=== PATIENT | male | born 1970 | race Caucasian/White ===

== ENCOUNTER 2017-08-03 10:49 | Emergency (ER) | payer MEDICAID ==
[~2017-08-03] VITALS: Wt 69.0 kg
[~2017-08-03 10:49] MED LIST: ALBU18HF INHALATION; ALBU8.5H3 INH; AMOX500C2 PO; LEVO500T72 PO; PRED20TA PO; TRAM50TA2 PO
[2017-08-03 10:52] VITALS: Wt 69.0 kg
[2017-08-03] MEDS ORDERED: IPRATROPIUM (NEB) 0.5 MG/2.5 ML AMP HHN ONE (15:30)
[2017-08-03] MEDS ORDERED: METHYLPREDNISOLONE 125 MG INJ IM ONE (15:30)
[2017-08-03] MEDS ORDERED: ALBUTEROL 0.083% (NEB) 2.5 MG/3 ML AMP HHN STA (15:30)
--- NOTE | 2017-08-03 15:40 | ERD ---
ER Documentation Chief Complaint Chief Complaint COUGH SINCE LAST NIGHT HPI 47-year-old male presents emergency department for cough, fever since last night. Denies headache, dizziness, blurred vision, changes in vision, neck pain , neck stiffness, throat pain, difficulty swallowing, loss of appetite, shoulder pain, chest pain, difficulty breathing when lying flat, abdominal pain , nausea, vomiting, constipation, diarrhea, loss of bowel bladder control, urinary symptoms, recent travel, recent long travel, leg pain, recent exposure to any illness, recent antibiotic use in the last 3 months, chills, seizures. Past medical history of asthma. No surgical history. ROS All systems reviewed and are negative except as per history of present illness. Medications Home Meds Active Scripts Prednisone* (Prednisone*) 20 Mg Tab, 40 MG PO DAILY for 4 Days, TAB Prov:BEREEDARACHELJUDITH Miller 08/03/17 Azithromycin* (Zithromax*) 250 Mg Tablet, 250 MG PO .ZPACK DIRECTED, #6 TAB TAKE 500 MG (2 TABS) THE FIRST DAY THEN 250 MG (1 TAB) DAYS 2-5 Prov:ESTEE GARCIA 08/03/17 Albuterol Sulfate* (Proair HFA*) 8.5 Gm Hfa.aer.ad, 2 PUFF INH Q4 Y for COUGH, # 1 INHALER Prov:JOSEESTEE Miller 08/03/17 Tramadol HCl (Tramadol HCl) 50 Mg Tablet, 50 MG PO Q4 Y for PAIN, #20 TAB Prov:ASHLEY HARRIS PA-C 04/15/16 Albuterol Sulfate* (Ventolin HFA*) 18 Gm Hfa.aer.ad, 2 PUFF INHALATION Q4H, #1 INHALER Prov:SANDIE MOORE MD 03/02/16 Prednisone* (Prednisone*) 20 Mg Tab, 60 MG PO DAILY for 6 Days, TAB Prov:SANDIE MOORE MD 03/02/16 Levofloxacin* (Levaquin*) 500 Mg Tablet, 500 MG PO DAILY for 7 Days, TAB Prov:SIDNEY IBANEZ DO 09/24/15 Albuterol Sulfate* (Proair HFA*) 8.5 Gm Hfa.aer.ad, 2 PUFF INH Q4H Y for WHEEZING AND SOB, #1 INHALER Prov:SIDNEY IBANEZ DO 09/24/15 Prednisone* (Prednisone*) 20 Mg Tab, 60 MG PO DAILY for 5 Days, TAB Prov:SIDNEY IBANEZ DO 09/24/15 Albuterol Sulfate* (Ventolin HFA*) 18 Gm Hfa.aer.ad, 2 PUFF INHALATION Q4H, #1 INHALER Prov:KYM LONDON DO 09/19/15 Amoxicillin* (Amoxicillin*) 500 Mg Cap, 500 MG PO TID for 10 Days, CAP Prov:KYM LONDON DO 09/19/15 Tramadol HCl (Tramadol HCl) 50 Mg Tablet, 50 MG PO Q4 Y for PAIN, #20 TAB Prov:KAYLEEN JANSEN PA-C 08/20/15 Allergies Allergies: Coded Allergies: acetaminophen (Verified Allergy, Unknown, 08/03/17) aspirin (Unverified Allergy, Unknown, 08/03/17) citric acid (Unverified Allergy, Unknown, 08/03/17) ibuprofen (Unverified Allergy, Unknown, 08/03/17) sodium bicarbonate (Unverified Allergy, Unknown, 08/20/15) PMhx/Soc Medical and Surgical Hx: pt denies Medical Hx, pt denies Surgical Hx History of Surgery: No Anesthesia Reaction: No Hx Neurological Disorder: No Hx Respiratory Disorders: Yes (asthma) Hx Cardiac Disorders: No Hx Psychiatric Problems: No Hx Miscellaneous Medical Probl: Yes (fracture left arm) Hx Alcohol Use: No Hx Substance Use: No Hx Tobacco Use: No Smoking Status: Never smoker Physical Exam Vitals Vital Signs Date Time Temp Pulse Resp B/P Pulse Ox O2 Delivery O2 Flow Rate FiO2 08/03/17 17:15 98.8 100 20 128/92 93 Room Air 08/03/17 15:45 123 20 95 21 08/03/17 10:52 102.2 69 18 133/71 99 Physical Exam Const: Awake. In mild distress due to his cough. Head: Atraumatic Eyes: Normal Conjunctiva. No visual l field loss. ENT: Normal External Ears, Nose and Mouth. Left ear: TM is not erythematous. Right ear: TM is not erythematous. No bleeding. No discharge on bilateral ears. No hearing loss bilaterally. Throat: Uvula is midline not displaced. Tonsils heels are +1 bilaterally without redness and without exudates. Tolerating secretions. Patent airway. Speaks full and clear sentences. Neck: Full range of motion..~ No meningismus. No neck stiffness. No signs of meningeal irritation. Resp: Tachypneic. Mild wheezing bilaterally. Cardio: Regular rate and rhythm, no murmurs Abd: Soft, non tender, non distended. Normal bowel sounds. Skin: No petechiae or rashes Back: No midline or flank tenderness Ext: No cyanosis, or edema Neur: Awake and alert. Romberg test negative. No neurological deficits. Psych: Normal Mood and Affect Results 24 hrs Current Medications Medications (Trade) Dose Ordered Sig/Carmel Route PRN Reason Start Time Stop Time Status Last Admin Dose Admin Albuterol (Proventil 0.083% (Neb)) 5 mg ONCE STAT N 08/03/17 15:30 08/03/17 15:35 DC 08/03/17 15:55 Ipratropium [place] (Atrovent 0.02% (Neb)) 0.5 mg ONCE ONCE HHN 08/03/17 15:30 08/03/17 15:35 DC 08/03/17 15:55 Methylprednisolone Sodium Succinate (Solu-Medrol) 125 mg ONCE ONCE IM 08/03/17 15:30 08/03/17 15:35 DC 08/03/17 15:51 Procedures/MDM Chest x-ray: Mild left low lower lobe linear atelectatic changes. EKG: Sinus tachycardia with a ventricular rate of 111 bpm. No STEMI. Read by supervising physician. Influenza A and B: Negative on influenza A and B. Treatment: Solu-Medrol IM. Albuterol and Atrovent breathing treatment. Reevaluation: Temperature responded to ice pack. Patient responded to breathing treatment and Solu-Medrol. Respirations even and unlabored. Lung sounds are clear to auscultation. Patient stated that he feels much better this time and is ready to go home. Differential diagnosis: I have low suspicion for sepsis, meningitis, severe serious bacterial infection, pneumonia, pulmonary embolism, flu given to the patient responded to breathing treatment and his temperature responded to ice packs. Patient is no neurological deficits. Final diagnosis: Asthma exacerbation/flu/asthmatic bronchitis. Prescription: Azithromycin. Pro-air. Prednisone. Follow-up with PCP in the next 3-4 days. Come back here in the emergency department for any new symptoms or any worsening of symptoms. All questions and concerns are answered. Patient and family member verbalized understanding and agreed with the plan of care. Hemodynamically stable on discharge. Departure Diagnosis: Primary Impression: Bronchitis Additional Impressions: Asthmatic bronchitis Asthma exacerbation Condition: Stable Additional Instructions: Follow-up with PCP in the next 3-4 days. Come back here in the emergency department for any new symptoms or any worsening of symptoms. All questions and concerns are answered. Patient and family member verbalized understanding and agreed with the plan of care. ESTEE GARCIA Aug 03, 2017 15:40
--- NOTE | 2017-08-03 16:20 | RADRPT ---
PROCEDURE: XR Chest. CLINICAL INDICATION: cough, fever TECHNIQUE: PA and lateral views of the chest were obtained COMPARISON: 03/02/16 FINDINGS: The heart and mediastinum are within normal limits. There are mild left lower lobe linear atelectatic changes. The lungs are otherwise clear. There is no pleural effusion or pneumothorax. The bones and soft tissues are unremarkable. RPTAT: AA IMPRESSION: Mild left lower lobe linear atelectatic changes. .Triston El MD, MD Date Time Electronically viewed and signed by .Triston El MD, on 08/03/2017 16:20 .S/
[2017-08-03] MEDS ORDERED: ALBU8.5H3 INH (17:05)
[2017-08-03] MEDS ORDERED: AZIT250T94 PO (17:06)
[2017-08-03] MEDS ORDERED: PRED20TA PO (17:06)
[2017-08-03 17:15] VITALS: BP 128/92; PULSE 100; RESP 20; TEMP 98.8
== END 2017-08-03 17:16 | disposition home or self-care (01) ==
LOC: FTE 10:49
DX: J20.9 Acute bronchitis, unspecified (principal); J45.901 Unspecified asthma with (acute) exacerbation; R07.9 Chest pain, unspecified
CPT/HCPCS: 71020; 87400; 93005; 94664; 96372; J2930; Z7502; Z7610

== ENCOUNTER 2018-10-28 14:57 | Emergency (ER) | payer MEDICAID ==
[~2018-10-28] VITALS: Wt 71.0 kg
[~2018-10-28 14:57] MED LIST changes: -ALBU8.5H3 INH; +ALBU8.5H8 INH; +AZIT250T PO; +LEVO500T48 PO; -LEVO500T72 PO
[2018-10-28 15:21] VITALS: BP 149/85
[2018-10-28] MEDS ORDERED: ALBUTEROL 0.5% (NEB) 2.5 MG/0.5 ML AMP INH STA (18:23)
[2018-10-28] MEDS ORDERED: IPRATROPIUM (NEB) 0.5 MG/2.5 ML AMP INH STA (18:23)
[2018-10-28] MEDS ORDERED: predniSONE 20 MG TAB PO ONE (18:30)
[2018-10-28] MEDS ORDERED: ALBU18HF INHALATION (20:45)
[2018-10-28] MEDS ORDERED: PRED20TA PO (20:45)
[2018-10-28 20:51] VITALS: PULSE 80; RESP 20
--- NOTE | 2018-10-28 22:33 | ERD ---
ER Documentation Chief Complaint Chief Complaint cough, fever, sore throat, back pain x 3 days HPI 48-year-old male patient with past medical history of asthma presents to ED complaining of cough, fever, sore throat. Patient reports is been going for the last 3 days. States that he would like a breathing treatment because he is wheezing. Denies any nausea, chest pain, vomiting, diarrhea, neck stiffness, abdominal pain. Denies any sick contacts. ROS All systems reviewed and are negative except as per history of present illness. Medications Home Meds Active Scripts Albuterol Sulfate* (Ventolin HFA*) 18 Gm Hfa.aer.ad, 2 PUFF INHALATION Q4H, #1 INHALER Prov:ROSA SANDOVAL PA-C 10/28/18 Prednisone* (Prednisone*) 20 Mg Tab, 40 MG PO DAILY for 4 Days, TAB Prov:ROSA SANDOVAL PA-C 10/28/18 Prednisone* (Prednisone*) 20 Mg Tab, 40 MG PO DAILY for 4 Days, TAB Prov:ESTEE GARCIA 08/03/17 Azithromycin* (Zithromax*) 250 Mg Tablet, 250 MG PO .TeresaPACK DIRECTED, #6 TAB TAKE 500 MG (2 TABS) THE FIRST DAY THEN 250 MG (1 TAB) DAYS 2-5 Prov:ESTEE GARCIA 08/03/17 Albuterol Sulfate* (Proair HFA*) 8.5 Gm Hfa.aer.ad, 2 PUFF INH Q4 PRN for COUGH, #1 INHALER Prov:ESTEE GARCIA 08/03/17 Tramadol HCl (Tramadol HCl) 50 Mg Tablet, 50 MG PO Q4 PRN for PAIN, #20 TAB Prov:ASHLEY HARRIS PA-C 04/15/16 Albuterol Sulfate* (Ventolin HFA*) 18 Gm Hfa.aer.ad, 2 PUFF INHALATION Q4H, #1 INHALER Prov:SANDIE MOORE MD 03/02/16 Prednisone* (Prednisone*) 20 Mg Tab, 60 MG PO DAILY for 6 Days, TAB Prov:SANDIE MOORE MD 03/02/16 Levofloxacin* (Levaquin*) 500 Mg Tablet, 500 MG PO DAILY for 7 Days, TAB Prov:SIDNEY IBANEZ DO 09/24/15 Albuterol Sulfate* (Proair HFA*) 8.5 Gm Hfa.aer.ad, 2 PUFF INH Q4H PRN for WHEEZING AND SOB, #1 INHALER Prov:SIDNEY IBANEZ 09/24/15 Prednisone* (Prednisone*) 20 Mg Tab, 60 MG PO DAILY for 5 Days, TAB Prov:SIDNEY IBANEZ 09/24/15 Albuterol Sulfate* (Ventolin HFA*) 18 Gm Hfa.aer.ad, 2 PUFF INHALATION Q4H, #1 INHALER Prov:KYM LONDON 09/19/15 Amoxicillin* (Amoxicillin*) 500 Mg Cap, 500 MG PO TID for 10 Days, CAP Prov:KYM LONDON 09/19/15 Tramadol HCl (Tramadol HCl) 50 Mg Tablet, 50 MG PO Q4 PRN for PAIN, #20 TAB Prov:KAYLEEN JANSEN PA-C 08/20/15 Allergies Allergies: Coded Allergies: acetaminophen (Verified Allergy, Unknown, 10/28/18) aspirin (Unverified Allergy, Unknown, 10/28/18) citric acid (Unverified Allergy, Unknown, 10/28/18) ibuprofen (Unverified Allergy, Unknown, 10/28/18) sodium bicarbonate (Unverified Allergy, Unknown, 10/28/18) PMhx/Soc History of Surgery: No Anesthesia Reaction: No Hx Neurological Disorder: No Hx Respiratory Disorders: Yes (asthma) Hx Cardiac Disorders: No Hx Psychiatric Problems: No Hx Miscellaneous Medical Probl: Yes (fracture left arm) Hx Alcohol Use: No Hx Substance Use: No Hx Tobacco Use: No Smoking Status: Never smoker FmHx Family History: No diabetes, No coronary disease Physical Exam Vitals Vital Signs Date Temp Pulse Resp B/P (MAP) Pulse Ox O2 O2 Flow FiO2 Time Delivery Rate 10/28/18 80 20 100 Room Air 20:51 10/28/18 80 20 99 21 18:50 10/28/18 98.1 83 20 149/85 99 15:21 (106) Physical Exam Const: Dku-nry-yitruaxxp, well-nourished. In no acute distress. Head: Atraumatic, normocephalic Eyes: Normal Conjunctiva without injection. No purulent discharge. PERRL. EOMI ENT: Normal external ear. Ear canal without erythema. Tympanic membrane pearly marte without effusion or bulging. Nasal canal clear with normal turbinates. Moist oropharynx without tonsillar exudates. Non-erythematous pharynx. Uvula midline. No drooling. No trismus. Neck: Full range of motion. No meningismus. No cervical lymphadenopathy. Resp: Clear to auscultation bilaterally. No wheezing, rhonchi, rales, or crackles. No accessory muscle use. No retractions. Cardio: Regular rate and rhythm. No murmurs, rubs or gallops. Abd: Soft, non tender, non distended. Normal bowel sounds. No palpable masses. No rebound tenderness. No guarding. Skin: No petechiae or rashes Back: No midline tenderness. No CVA tenderness. Ext: No cyanosis, or edema. Neur: Awake and alert. Psych: Normal Mood and Affect Results 24 hrs Current Medications Medications Dose Sig/Carmel Start Time Status Last (Trade) Ordered Route PRN Stop Time Admin Dose Reason Admin Albuterol 10 mg ONCE STAT 10/28/18 DC 10/28/18 (Proventil INH 18:23 18:50 0.5% (Neb)) 10/28/18 18:24 Ipratropium 1 mg ONCE STAT 10/28/18 DC 10/28/18 [place] INH 18:23 18:50 (Atrovent 10/28/18 18:24 0.02% (Neb)) Prednisone 60 mg ONCE ONCE 10/28/18 DC 10/28/18 (Prednisone) PO 18:30 18:37 10/28/18 18:31 Procedures/MDM 48-year-old male patient with a past medical history of asthma presents to ED complaining of cough, fever, sore throat. Patient is afebrile and nontoxic- appearing. Patient was given a breathing treatment consisting of continuous 10 mg albuterol, 1 mg Atrovent, is a 60 mg here in the ED with improvement of his symptoms. Patient is speaking in full sentences. Patient's pulse oxygenation is 100%. IMPRESSION: No acute disease. Patient likely has an asthma exacerbation vs. URI with wheezing. Low suspicion for atypical CT, pneumonia, pulmonary embolism, pneumothorax, cardiac tamponade, sinusitis, peritonsillar abscess, mastoiditis, Akshat's angina, retropharyngeal abscess, meningitis, sepsis or other emergent conditions. Patient's respiratory status has stabilized while in the department and is appropriate for outpatient work up. Exam and work up not consistent w/ impending respiratory failure or cardiovascular collapse. Diagnosis: Cough, Wheezing Discharge medications: Ventolin, Prednisone Follow up with primary care physician in 1-2 days. Instructed patient to return to the ED sooner for any worsening symptoms. Patient's questions were answered. Patient is hemodynamically stable. Patient understood and agreed with discharge plan. Patient discharged stable. Disclaimer: Inadvertent spelling and grammatical errors are likely due to EHR/dictation software use and do not reflect on the overall quality of patient care. Also, please note that the electronic time recorded on this note does not necessarily reflect the actual time of the patient encounter. Departure Diagnosis: Primary Impression: Cough Additional Impression: Wheezing Condition: Stable Patient Instructions: Asthma, Acute (Adult), Uri, Viral W/ Wheezing (Adult) Referrals: [facility] YOU HAVE RECEIVED A MEDICAL SCREENING EXAM AND THE RESULTS INDICATE THAT YOU DO NOT HAVE A CONDITION THAT REQUIRES URGENT TREATMENT IN THE EMERGENCY DEPARTMENT. FURTHER EVALUATION AND TREATMENT OF YOUR CONDITION CAN WAIT UNTIL YOU ARE SEEN IN YOUR DOCTORS OFFICE WITHIN THE NEXT 1-2 DAYS. IT IS YOUR RESPONSIBILITY TO MAKE AN APPOINTMENT FOR FOLOW-UP CARE. IF YOU HAVE A PRIMARY DOCTOR --you should call your primary doctor and schedule an appointment IF YOU DO NOT HAVE A PRIMARY DOCTOR YOU CAN CALL OUR PHYSICIAN REFERRAL HOTLINE AT IF YOU CAN NOT AFFORD TO SEE A PHYSICIAN YOU CAN CHOSE FROM THE FOLLOWING THE [facility] [address] [facility]. [facility] [address] [facility]. [facility] [address] [facility] [facility] [address] [facility]. [facility] [address] [facility]. [facility]. [address] [facility]. [facility] YOU HAVE RECEIVED A MEDICAL SCREENING EXAM AND THE RESULTS INDICATE THAT YOU DO NOT HAVE A CONDITION THAT REQUIRES URGENT TREATMENT IN THE EMERGENCY DEPARTMENT. FURTHER EVALUATION AND TREATMENT OF YOUR CONDITION CAN WAIT UNTIL YOU ARE SEEN IN YOUR DOCTORS OFFICE WITHIN THE NEXT 1-2 DAYS. IT IS YOUR RESPONSIBILITY TO MAKE AN APPOINTMENT FOR FOLOW-UP CARE. IF YOU HAVE A PRIMARY DOCTOR --you should call your primary doctor and schedule and appointment IF YOU DO NOT HAVE A PRIMARY DOCTOR YOU CAN CALL OUR PHYSICIAN REFERRAL HOTLINE AT . IF YOU CAN NOT AFFORD TO SEE A PHYSICIAN YOU CAN CHOSE FROM THE FOLLOWING [facility] INSTITUTIONS: [facility] [address] [place] [address] [facility] [address] [place] [address] [facility] [address] [place] [address] [facility] URGENT CARE/SPECIALTIES Additional Instructions: Llame al doctor MAANA y dominic edgardo JARRED PARA DENTRO DE 2-3 MINAYA.Dgale a la secretaria que nosotros le instruimos hacer esta jarred.Avise o llame si jenkins condicin se empeora antes de la jarred. Regresa aqui si peor o no mejor. ROSA SANDOVAL PA-C Oct 28, 2018 22:33
== END 2018-10-28 20:54 | disposition home or self-care (01) ==
LOC: FTE 14:57
DX: R05 Cough (principal); J45.901 Unspecified asthma with (acute) exacerbation
CPT/HCPCS: 71045; 94644; J7512; Z7502; Z7610